=== PATIENT | male | born 1955 | race Caucasian/White ===

== ENCOUNTER 2024-01-03 15:03 | Observation (INO) | payer MEDICARE, SELFPAY ==
[2024-01-03] VITALS (19 sets, daily range): BP systolic 99–124; BP diastolic 48–89; PULSE 80–130; RESP 14–20; TEMP 36.8–37.1; O2SAT 97–100; BMI 23.1
--- NOTE | ~2024-01-03 | XR_ITS ---
EXAMINATION: XR chest 2V DATE: 01/03/2024 15:42 INDICATION: Syncopal episode while working out TECHNIQUE: PA and lateral views of the chest were obtained. COMPARISON: None FINDINGS: The lungs are clear with no focal airspace opacities, pulmonary edema, pleural effusion or pneumothor ax. The cardiomediastinal silhouette is normal. Mild thoracic spondylosis with chronic appearing mild anterior wedging of a few mid thoracic vertebral bodies.. IMPRESSION: 1. No acute cardiopulmonary disease. Reviewed, dictated and finalized at location A. CONTROLMAN
--- NOTE | ~2024-01-03 | US_ITS ---
EXAMINATION: US carotid duplex BI DATE: 01/04/2024 08:55 INDICATION: Syncope. Arrhythmia. TECHNIQUE: Grayscale, color Doppler, and pulsed Doppler images of the cervical carotid arteries were obtained. The degree of vessel stenosis is placed in one of the following categories: normal, <50%, 5 0-69%, >=70% but less than near-occlusion, near-occlusion, or total occlusion. Note that percent sten osis relative to normal distal artery lumen diameter is indirectly measured from velocity measurement s as described by Eder, et al. Radiology 2003; 229:340-346. COMPARISON: None. FINDINGS: RIGHT: The right common carotid artery (CCA) peak systolic velocity (PSV) is 102 cm/s. The right internal ca rotid artery (ICA) PSV is 95 cm/s. The right ICA end-diastolic velocity (EDV) is 25 cm/s. The right I CA/CCA PSV ratio is 0.9. Grayscale and color Doppler images yield an estimate of <50% diameter reduct ion from plaque in the ICA. The external carotid artery (ECA) PSV is 91 cm/s. There is antegrade flow in the right vertebral artery. LEFT: The left CCA PSV is 75 cm/s. The left ICA PSV is 169 cm/s. The left ICA EDV is 43 cm/s. The left ICA/ CCA PSV ratio is 2.3. Grayscale and color Doppler images yield an estimate of 50-69% diameter reducti on from plaque in the ICA. The ECA PSV is 74 cm/s. There is antegrade flow in the left vertebral raad ry. IMPRESSION: 1. <50% stenosis in the right internal carotid artery. 2. 50-69% stenosis in the left internal carotid artery. Reviewed, dictated and finalized at location A. E INFORMATICS EDUCATOR
--- NOTE | 2024-01-03 15:21 | ECG_ITS ---
Measurements Intervals [place] Rate: 89 P: 62 WI: 183 QRS: 20 QRSD: 83 T: 39 QT: 345 QTc: 420 Interpretive Statements SINUS RHYTHM WITH FREQUENT VENTRICULAR PREMATURE COMPLEXES IN A BIGEMINAL PATTERN ABNORMAL ECG NO PREVIOUS ECG AVAILABLE FOR COMPARISON Electronically Signed On 01-03-2024 18:35:03 TRUCK BODY BUILDER APPRENTICE by Ayush Merrill M.D.
[2024-01-03 15:44] LABS: Basophils Percent Auto 0.3 % (0.2-1.2); Eosinophils Absolute Auto 0.1 K/mm3 (0-0.3); Eosinophils Percent Auto 1.5 % (0-4.4); Hemoglobin 14.7 g/dL (14.0-18.0); Immature Granulocyte Absolute 0.02 K/mm3 (0.00-0.031); Immature Granulocyte Percent A 0.3 % (0-0.5); Lymphocytes Absolute Auto 1.33 K/mm3 (0.9-3.2); Lymphocytes Percent Auto 19.6 % (18.3-44.2); Mean Corpuscular HGB Conc 33.4 g/dl (32-36); Mean Corpuscular Hemoglobin 29.3 pg (26-34); Mean Corpuscular Volume 87.8 fl (80-100); Monocytes Absolute Auto 0.7 K/mm3 (0.1-0.6); Monocytes Percent Auto 9.9 % (2.6-8.5); Neutrophils Absolute Auto 4.7 K/mm3 (1.3-6.7); Neutrophils Percent Auto 68.4 % (45.5-73.1); Platelet Count Result 202 k/mm3 (150-375); Red Blood Count 5.01 M/mm3 (4.6-6.20); Red Cell Distribution Width 13.7 % (11.5-14.5); White Blood Count 6.8 K/mm3 (4.5-10.0)
[2024-01-03 15:58] LABS: Alanine Aminotransferase 25 U/L (6-50); Albumin Level 4.1 g/dL (3.5-5.1); Alkaline Phosphatase 81 U/L (38-126); Anion Gap 5 mmol/L (8-16); Aspartate Amino Transferase 32 U/L (17-59); Bilirubin,Total 0.6 mg/dL (0.2-1.3); Blood Urea Nitrogen 18 mg/dL (9-20); Calcium 9.5 mg/dL (8.4-10.2); Carbon Dioxide 26 mmol/L (22-30); Chloride 105 mmol/L (98-107); Estimated CRCL calculation 54 ml/min; Estimated Glomerular Filt Rate > 60; Glucose 129 mg/dL (65-110); Potassium 3.8 mmol/L (3.4-5.0); Sodium 136 mmol/L (137-145)
[2024-01-03 16:04] LABS: Prothrombin Time 13.4 Seconds (11.1-14.7)
[2024-01-03 16:05] LABS: Partial Thromboplastin Time 23.9 SECONDS (22.3-36.8)
[2024-01-03 16:10] LABS: NT Pro B Type Natriuretic Pept 108 pg/mL (19.9-100); Troponin I < 0.012 ng/mL (0.000-0.034)
--- NOTE | 2024-01-03 17:23 | ED.SYNCOPE ---
HPI - Syncope General Chief Complaint: Syncope Stated Complaint: SYNCOPY Time Seen by Provider: 01/03/24 15:13 History of Present Illness HPI narrative: Patient is a 68-year-old male who presents ER with syncope. Patient was at the gym and had done 20 minutes on the treadmill without any issue. He then started doing a chest press with 50 lb. It did not feel heavy for him. While performing the chest presses the patient began to get lightheaded and dizzy. He does not think he was holding his breath. At that moment he thought it was time to leave the gym. As he was leaving he lost consciousness. No complaints at this time. He reports he has had syncope once before but it was not exertional. No bleeding. No chest pain at this time. He did not have chest pain while working out. EKG shows bigeminy but his environmental monitoring technician showed sinus rhythm. Related Data Home Medications Medication Instructions Recorded Confirmed alprazolam 0.25 mg tablet (Xanax) 0.25 mg PO QHS PRN 02/03/22 02/03/22 lisinopril 20 1 tablet PO DAILY 02/03/22 02/03/22 mg-hydrochlorothiazide 25 mg tablet meloxicam 15 mg tablet 15 mg PO DAILY 02/03/22 02/03/22 pravastatin 40 mg tablet 40 mg PO DAILY 02/03/22 02/03/22 Allergies Allergy/AdvReac Type Severity Reaction Status Date / Time No Known Allergies Allergy Verified 02/03/22 13:30 Review of Systems Review of Systems: All systems reviewed & are unremarkable except as noted in HPI and below Constitutional: Constitutional: Denies chills, Denies fatigue and Denies fever(s) ENT: Reports system reviewed and no additional complaints, except as documented Cardiovascular: Cardiovascular: Reports no additional cardiovascular complaints Respiratory: Respiratory: Reports no additional respiratory complaints Gastrointestinal: Gastrointestinal: Reports no additional gastrointestinal complaints Musculoskeletal: Musculoskeletal: Reports no additional musculoskeletal complaints Neurologic: Reports syncope, Denies focal weakness and Denies numbness PMFSH Past Medical History Medical History (Updated 01/03/24 @ 17:57 by Ronald Bacon MD) History of anxiety History of arthritis History of hypertension Unilateral primary osteoarthritis, right hip Surgical History Surgical History History of carpal tunnel surgery Family History Family History Other Cancer Thyroid disorder Social History Social History Smoking status: Never smoker Alcohol intake: current Living arrangements: alone Occupation/Education: occupation 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 HEAD: Normocephalic, atraumatic. ENT: Mucous membranes moist. NECK: Supple. CHEST: Clear to auscultation. No respiratory distress. HEART: Regular rate and rhythm. Normal peripheral pulses. ABDOMEN: Soft, nontender, nondistended. EXTREMITIES: Normal range of motion. No edema. SKIN: Warm, dry, no rash. NEURO: Alert and oriented x3. PSYCH: Normal mood and affect. Course Course Emergency Course: Patient resting comfortably. I have consulted Cardiology in regards the case. No recommendations at this time despite admission for observation to better monitor for arrhythmia. Patient may require stress testing. Patient resting comfortably and informed of lab and imaging results as well as EKG findings. He is comfortable staying in the hospital. Patient accepted by the hospitalist. Vital Signs Vital signs: Vital Signs Temperature 98.7 F 01/03/24 15:12 Pulse Rate 91 01/03/24 15:12 Respiratory Rate 16 01/03/24 15:12 Blood Pressure 119/62 01/03/24 15:12 Pulse Oximetry 1
--- NOTE | 2024-01-03 19:03 | ECG_ITS ---
Measurements Intervals [place] Rate: 75 P: 56 [place]: 194 QRS: 0 QRSD: 81 T: 22 QT: 364 QTc: 408 Interpretive Statements SINUS RHYTHM COMPARED TO ECG 01/03/2024 15:26:51 NO SIGNIFICANT CHANGES Electronically Signed On 01-04-2024 15:20:10 OIL BURNER INSTALLER by Ed Calderon M.D.
[2024-01-03 19:36] LABS: Troponin I < 0.012 ng/mL (0.000-0.034)
--- NOTE | 2024-01-03 20:02 | ADMGEN ---
This patient, Otis Reyes, was admitted to Medical Room 346-01. Patient/family oriented to hospital policies and general routines including ID bracelet, bed and alarms, visiting hours, pain management, procedures, bathroom and other care routines, personal items, smoking policy, room service/diet, and visiting hours. Information on how to activate the Rapid Response Team has been discussed. Patient/Family are encouraged to report perceived risks to care and to ask questions if they do not understand what they are told or what they should do.
--- NOTE | 2024-01-03 21:31 | PM.IMHP ---
H&P: HPI History of Present Illness Date/Time: 01/03/24 21:31 Chief Complaint: Syncope Narrative: 68-year-old male past medical history anxiety hypertension presented to the ER due to syncope. He was working out in the gym about 1:30 p.m. when he passed out. Does not know how long he was passed out for but denies any postictal confusion. Denies any chest pain no fever, cough, no change in appetite, no vomiting, no abdominal pain, no diarrhea no dysuria no focal symptoms. Noted prior episode about 4 months ago which led to change his hydrochlorothiazide downto 12.5 mg. Your evaluation notable for blood pressure 104/61, pulse rate 93, respiratory 16, EKG no acute changes. Labs unremarkable, troponin negative x2. Patient was admitted for further evaluation and care. Review of Systems Review of Systems: All other systems reviewed and negative except as noted in history above. [facility] Past Medical History Medical History (Updated 01/03/24 @ 21:35 by Sami Jaimes MD) History of anxiety History of arthritis History of hypertension Unilateral primary osteoarthritis, right hip Surgical History Surgical History History of carpal tunnel surgery Family History Family History Other Cancer Thyroid disorder Social History Social History Smoking status: Never smoker Alcohol intake: never Substance use: never Do You Feel Safe in your Home?: Yes Lack of Transportation: No Lack of Food: Never True Current Housing: I Have Housing Concerned About Future Housing: No Difficulty Paying Gas/Electric Bills: No Difficulty Paying for Meds: No Currently Unemployed: No Education: High School Diploma/GED Difficulty w/ Childcare or Family Care: No Living arrangements: alone Occupation/Education: occupation 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- [employer] Gender identity (if verbalized by the patient): Male Spiritual care concerns: No Meds Home Medications and Allergies Home Medications Medication Instructions Recorded Confirmed Type lisinopril 20 1 tablet PO DAILY 02/03/22 01/03/24 History mg-hydrochlorothiazide 25 mg tablet pravastatin 40 mg tablet 40 mg PO DAILY 02/03/22 01/03/24 History Allergies Allergy/AdvReac Type Severity Reaction Status Date / Time No Known Allergies Allergy Verified 02/03/22 13:30 Vital Signs Vital Signs - 24 hr 01/03/24 15:12 01/03/24 15:16 01/03/24 15:16 Temperature 98.7 F Pulse Rate 91 89 Respiratory Rate 16 Blood Pressure 119/62 Pulse Oximetry 100 100 Oxygen Delivery Room Air Room Air 01/03/24 15:19 01/03/24 15:19 01/03/24 15:19 Temperature Pulse Rate 80 130 H 103 H Respiratory Rate Blood Pressure 100/74 120/78 124/79 Pulse Oximetry Oxygen Delivery 01/03/24 15:16 01/03/24 15:17 01/03/24 15:18 Temperature Pulse Rate 90 100 99 Respiratory Rate 18 18 20 Blood Pressure 100/74 120/78 Pulse Oximetry 99 97 100 Oxygen Delivery 01/03/24 15:19 01/03/24 15:34 01/03/24 15:45 Temperature Pulse Rate 89 89 88 Respiratory Rate 20 20 15 Blood Pressure 124/79 Pulse Oximetry 100 99 99 Oxygen Delivery 01/03/24 15:46 01/03/24 16:01 01/03/24 16:02 Temperature Pulse Rate 93 88 88 Respiratory Rate 16 19 20 Blood Pressure 104/61 109/48 L Pulse Oximetry 99 98 98 Oxygen Delivery 01/03/24 16:19 01/03/24 16:30 01/03/24 16:31 Temperature Pulse Rate 86 87 88 Respiratory Rate 20 18 14 Blood Pressure 99/74 L Pulse Oximetry 98 97 98 Oxygen Delivery 01/03/24 16:46 01/03/24 17:02 01/03/24 17:07 Temperature Pulse Rate 92 90 80 Respiratory Rate 19 19 17 Blood Pressure 112/76 Pulse Oximetry 99 98 99 Oxygen Delivery 01/03/24 17:48 01/03/24 20:08 01/03/24 20:01 Tem
[2024-01-03 22:00] LABS: Troponin I < 0.012 ng/mL (0.000-0.034)
[2024-01-04] VITALS (12 sets, daily range): BP systolic 91–122; BP diastolic 62–78; PULSE 63–90; RESP 16–18; TEMP 36.4–36.8; O2SAT 97–100
--- NOTE | 2024-01-04 | ECHO_ITS ---
Patient Info Name: Otis Reyes Age: 68 years : 1955 Gender: Male Ht: 65 in Wt: 160 lbs BSA: 1.84 m2 HR: 87 bpm BP: 106 / 63 mmHg Technical Quality: Good Exam Date: 01/04/2024 11:40 AM Exam Location: Echo Lab Patient Status: Inpatient Admit Date: 01/03/2024 Staff Ordering Physician: Sami Jaimes MD Buttonhole Facer: Frances Soto RDCS Attending Provider: Sami Jaimes MD Exam Type: CA echo doppler color flow Study Info Indications - syncope Complete two-dimensional, color flow and Doppler transthoracic echocardiogram is performed. Summary 1. Complete two-dimensional, color flow and Doppler transthoracic echocardiogram is performed. 2. Left ventricular chamber dimension is normal. 3. Left ventricular systolic function is normal, estimated at 60-65%. 4. The left ventricular diastolic function is grade I diastolic dysfunction. 5. Right ventricular systolic function is normal. 6. No significant valvular disease. Left Ventricle Left ventricular chamber dimension is normal. Left ventricular systolic function is normal, estimated at 60-65%. There is no increased left ventricular wall thickness. The left ventricular diastolic function is grade I diastolic dysfunction. Right Ventricle Right ventricular chamber dimension is normal. Right ventricular systolic function is normal. Left Atria Left atrial chamber dimension is normal. Right Atria Right atrial chamber dimension is normal. Atrial Septum Intact interatrial septum visualized by color flow imaging. Aortic Valve The aortic valve is trileaflet. There is no aortic valve stenosis. There is no aortic valve regurgitation. Pulmonic Valve The pulmonic valve is not well visualized. Mitral Valve There is trace mitral valve regurgitation. Tricuspid Valve There is trace tricuspid valve regurgitation. Pericardium/Pleural There is no pericardial effusion. Inferior Vena Cava Normal inferior vena cava with >50% collapse upon inspiration consistent with normal right atrial pressure, 3 mmHg. Aorta The aortic root size at the sinus of Valsalva is normal. Left Ventricular Outflow Tract Name Value Normal LVOT 2D LVOT Diameter 1.9 cm LVOT Doppler LVOT Peak Gradient 4 mmHg LVOT Mean Gradient 2 mmHg LVOT VTI 24 cm LVOT VTI/AV VTI Ratio 1.1 LVOT Stroke Volume 64 ml LVOT CO 5.2 l/min LVOT CI 2.8 l/min/m2 Pulmonic Valve Name Value Normal RVOT Doppler RVOT Peak Gradient 2 mmHg PV Doppler PV Peak Gradient 8 mmHg Mitral Valve Name Value Normal ---------
[2024-01-04 06:19] LABS: Basophils Percent Auto 0.3 % (0.2-1.2); Eosinophils Absolute Auto 0.2 K/mm3 (0-0.3); Eosinophils Percent Auto 2.5 % (0-4.4); Hemoglobin 14.8 g/dL (14.0-18.0); Immature Granulocyte Absolute 0.01 K/mm3 (0.00-0.031); Immature Granulocyte Percent A 0.1 % (0-0.5); Lymphocytes Absolute Auto 1.54 K/mm3 (0.9-3.2); Lymphocytes Percent Auto 22.5 % (18.3-44.2); Mean Corpuscular HGB Conc 33.6 g/dl (32-36); Mean Corpuscular Hemoglobin 29.5 pg (26-34); Mean Corpuscular Volume 87.8 fl (80-100); Mean Platelet Volume 9.1 fl (7.4-10.4); Monocytes Absolute Auto 0.7 K/mm3 (0.1-0.6); Monocytes Percent Auto 9.9 % (2.6-8.5); Neutrophils Absolute Auto 4.4 K/mm3 (1.3-6.7); Neutrophils Percent Auto 64.7 % (45.5-73.1); Platelet Count Result 216 k/mm3 (150-375); Red Blood Count 5.01 M/mm3 (4.6-6.20); Red Cell Distribution Width 13.6 % (11.5-14.5); White Blood Count 6.8 K/mm3 (4.5-10.0)
[2024-01-04 06:33] LABS: Lactic Acid Reflex 0.9 mmol/L (0.7-2.0)
[2024-01-04 06:43] LABS: Alanine Aminotransferase 22 U/L (6-50); Albumin Level 3.9 g/dL (3.5-5.1); Alkaline Phosphatase 67 U/L (38-126); Anion Gap 5 mmol/L (8-16); Aspartate Amino Transferase 31 U/L (17-59); Bilirubin,Total 0.4 mg/dL (0.2-1.3); Blood Urea Nitrogen 17 mg/dL (9-20); Calcium 9.2 mg/dL (8.4-10.2); Carbon Dioxide 25 mmol/L (22-30); Chloride 104 mmol/L (98-107); Estimated CRCL calculation 60 ml/min; Estimated Glomerular Filt Rate > 60; Glucose 108 mg/dL (65-110); Magnesium 2.2 mg/dL (1.6-2.3); Sodium 134 mmol/L (137-145)
[2024-01-04] MEDS: PRAVASTATIN SODIUM 20 MG TABLET 40 MG PO (09:57)
[2024-01-04] MEDS: ENOXAPARIN 40 MG/0.4 ML SYRINGE SUB-Q (09:57)
--- NOTE | 2024-01-04 11:10 | PM.CNCAR ---
Assessment and Plan Assessment and plan (1) Syncope: Code(s): R55 - Syncope and collapse Status: Acute Assessment and Plan: Carotid Doppler without significant carotid disease. Recommend to check orthostatic vital signs. Check TSH level. Echocardiogram ordered and pending. Tele with occasional ventricular bigeminy, however, patient is asymptomatic when he had that on tele here at hospital. Recommend 30 day event monitor (order already placed). If echocardiogram without significant abnormality, orthostatic vital signs negative, okay to discharge home from my standpoint with the event monitor. (2) History of hypertension: Code(s): Z86.79 - Personal history of other diseases of the circulatory system Status: Acute Assessment and Plan: SBP in the 90s to 110s here. Agree with stopping his home blood pressure medication. Close outpatient follow up with his primary care. Plan Recommendations and plan were discussed with Hospitalist. History of Present Illness History of Present Illness Consult date/time: 01/04/24 11:10 Requesting physician: Ronald Bacon MD Consult reason: Other (Syncope) Reason For Visit: Exertional Syncope, Bigeminy Narrative: We are consulted for syncope. Patient is a pleasant 68 year old male with hypertension and hyperlipidemia who presented to [facility] after a syncopal episode. He was working out at the gym and had done his usual time on the treadmill and was working on the machines. He felt lightheaded and passed out for what he believes is a few seconds. States that when EMS had gotten there, his SBP was in the 90s. He is feeling well now without any symptoms. Denies any history of chest pain, palpitations. He had a prior episode in the past of presyncope that was attributed to low blood pressures and required his blood pressure medicine to be cut in half. ER workup showed negative troponins x 3. EKG with sinus rhythm with ventricular bigeminy. His blood pressure medication has been on hold due to soft blood pressures. Review of Systems Review of Systems: All systems reviewed & are unremarkable except as noted in HPI and below (HPI) [facility] Past Medical History Medical History History of anxiety History of arthritis History of hypertension Unilateral primary osteoarthritis, right hip Surgical History Surgical History History of carpal tunnel surgery Family History Family History Other Cancer Thyroid disorder Social History Social History Smoking status: Never smoker Alcohol intake: never Substance use: never Do You Feel Safe in your Home?: Yes Lack of Transportation: No Lack of Food: Never True Current Housing: I Have Housing Concerned About Future Housing: No Difficulty Paying Gas/Electric Bills: No Difficulty Paying for Meds: No Currently Unemployed: No Education: High School Diploma/GED Difficulty w/ Childcare or Family Care: No Living arrangements: alone Occupation/Education: occupation 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- [employer] Gender identity (if verbalized by the patient): Male Spiritual care concerns: No Meds Home Medications and Allergies Home Medications Medication Instructions Recorded Confirmed Type lisinopril 20 1 tablet PO DAILY 02/03/22 01/03/24 History mg-hydrochlorothiazide 25 mg tablet pravastatin 40 mg tablet 40 mg PO DAILY 02/03/22 01/03/24 History Allergies Allergy/AdvReac Type Severity Reaction Status Date / Time No Known Allergies Allergy Verified 02/03/22 13:30 Vital Signs Vital Signs - 24 hr 01/03/24 15:12 01/03/24 15:16 01/03/24 15:16 Temperature 37.1 C Pulse Rate 91 89 Respiratory Rate 16 Blood Pressure 119/62
--- NOTE | 2024-01-04 11:11 | PM.DS ---
DS: Admitting Diagnosis Discharge Date 01/04/2024 Admitting Diagnosis Syncope, history of hypertension, history of anxiety, unilateral primary osteoarthritis right hip DS: Discharge Diagnosis Discharge Diagnosis (1) Syncope: Code(s): R55 - Syncope and collapse Status: Acute (2) History of hypertension: Code(s): Z86.79 - Personal history of other diseases of the circulatory system Status: Acute (3) History of anxiety: Code(s): Z86.59 - Personal history of other mental and behavioral disorders Status: Acute (4) Unilateral primary osteoarthritis, right hip: Code(s): M16.11 - Unilateral primary osteoarthritis, right hip Status: Chronic DS: Summary Hospital Course Hospital Course: This is a 68-year-old male patient who has syncopal episode while working out at the gym. He was admitted for syncope workup with unremarkable carotid Dopplers, unremarkable echocardiogram. Patient was evaluated by Cardiology who will place a 30 day event monitor and follow up in the office. Blood pressure medicine lisinopril/hydrochlorothiazide is to be discontinued. Patient will continue only his pravastatin. He does not take any other medications. Blood pressure was borderline low on admission and was definitely low following syncopal episode per EMS evaluation. Patient is eating drinking and using the restroom well. He has no complaints and no recurrence of lightheadedness or dizziness. Status at Discharge Cognitive/behavioral status at discharge: Awake alert oriented and pleasant Functional status at discharge: independent ambulation Overall status at discharge: patient is back to baseline Time Spent with Patient Time attestation: Total time spent providing and/or coordinating discharge services: 35 minutes Time spent: Greater than 30 minutes Exam Narrative: GENERAL: Well-appearing, well-nourished, and in no acute distress. HEAD: Normocephalic, atraumatic. ENT:? Mucous membranes moist. CHEST: Clear to auscultation.? No respiratory distress. HEART: Regular rate and rhythm. ? Normal peripheral pulses. ABDOMEN: Soft, nontender, nondistended. EXTREMITIES: Normal range of motion. No peripheral edema. SKIN: Warm dry normal color NEURO: Alert and oriented x3. PSYCH: Normal mood and affect DS: Data Data Completed and Pending Completed studies during hospitalization: Chest x-ray, carotid Doppler, echocardiogram Labs on day of discharge: Labs from last 24 hours 01/04/24 01/03/24 01/03/24 05:48 21:27 19:00 WBC 6.8 RBC 5.01 Hgb 14.8 Hct 44.0 MCV 87.8 MCH 29.5 MCHC 33.6 RDW 13.6 Plt Count 216 MPV 9.1 Immature Gran % (Auto) 0.1 Neut % (Auto) 64.7 Lymph % (Auto) 22.5 Harlan % (Auto) 9.9 H Eos % (Auto) 2.5 Baso % (Auto) 0.3 Lymph # (Auto) 1.54 Harlan # (Auto) 0.7 H Eos # (Auto) 0.2 Baso # (Auto) 0.0 Abs Immat Gran (auto) 0.01 Absolute Neuts (auto) 4.4 Absolute Nucleated RBC 0.0 Nucleated RBC % 0.0 PT INR APTT Sodium 134 L Potassium 4.0 Chloride 104 Carbon Dioxide 25 Anion Gap 5 L BUN 17 Creatinine 0.90 Estim Creat Clear Calc 60 Estimated GFR > 60 Glucose 108 Lactic Acid 0.9 Calcium 9.2 Magnesium 2.2 Total Bilirubin 0.4 AST 31 ALT 22 Alkaline Phosphatase 67 Troponin I < 0.012 < 0.012 NT-Pro-B Natriuret Pep Total Protein 6.0 L Albumin 3.9 01/03/24 15:36 WBC 6.8 RBC 5.01 Hgb 14.7 Hct 44.0 MCV 87.8 MCH 29.3 MCHC 33.4 RDW 13.7 Plt Count 202 MPV 9.0 Immature Gran % (Auto) 0.3 Neut % (Auto) 68.4 Lymph % (Auto) 19.6 Harlan % (Auto) 9.9 H Eos % (Auto) 1.5 Baso % (Auto) 0.3 Lymph # (Auto) 1.33 Harlan # (Auto) 0.7 H Eos # (Auto) 0.1 Baso # (Auto) 0.0 Abs Immat Gran (auto) 0.02 Absolute Neuts (auto) 4.7 Absolute Nucleated RBC 0.0 Nucleated RBC % 0.0 PT 13.4 INR 1.0 APTT 23.9 [place]
--- NOTE | 2024-01-04 13:45 | PCOTNOTE ---
Canceling therapy orders, pt. independent in room, declines need for therapy services at this time. Hospitalist, Dru Barker, and nursing in agreement.
== END 2024-01-04 15:48 | disposition home or self-care (01) ==
LOC: ANHED 17:57 → ANH3MED 20:05 → ANH3MEDSUR 01-05 09:10
PROVIDERS: Internal Medicine; Nurse Practitioner; Admitting Provider Internal Medicine; Emergency Provider Emergency Medicine; Visit Provider Internal Medicine
DX: R55 Syncope and collapse (principal); I65.23 Occlusion and stenosis of bilateral carotid arteries; I10 Essential (primary) hypertension; F41.9 Anxiety disorder, unspecified; M16.11 Unilateral primary osteoarthritis, right hip
CPT/HCPCS: 36415; 71046; 80053; 83605; 83735; 83880; 84443; 84484; 85025; 85610; 85730; 93005; 93306; 93880; 96372; 99285; A9270; G0378; J1650